=== PATIENT | male | born 1935 | race Caucasian/White ===

== ENCOUNTER 2017-12-01 14:55 | Inpatient (IN) | payer OTHER, BC ==
[2017-12-01] MEDS ORDERED: ACETAMINOPHEN 325 MG TAB PO PRN (16:59)
[2017-12-01] MEDS ORDERED: WARFARIN SODIUM 2.5 MG TAB PO SCH (17:00)
--- NOTE | 2017-12-01 18:01 | GHP ---
POST ADMISSION PHYSICIAN EVALUATION AND REHABILITATION TREATMENT PLAN DATE OF ADMISSION: 12/01/2017 DATE OF EVALUATION: 12/01/2017 TIME OF EVALUATION: 1635 REFERRING FACILITY: [facility] IMPAIRMENT GROUP: 1.9. DATE OF ONSET: 11/27/2017 REFERRING PHYSICIAN: Dr. Gunn CONSULTING PHYSICIANS: He was seen in consultation by tele-neurology Dr. Mera, and had an echocardiogram done by Cardiology. REHABLITATION DIAGNOSIS: Acute on chronic CVA. ETIOLOGIC DIAGNOSIS: Other stroke. HISTORY OF PRESENT ILLNESS: This patient is an 82-year-old man who was admitted to [facility] on 11/27/2017, after being found down at home with expressive aphasia. Hospital evaluation included an MR angiogram, which did not show any large vessel occlusions, an MRI of the brain which showed acute on chronic ischemic changes in the frontoparietal region on the left. He had an echocardiogram which showed no intracardiac shunt, but showed mild tricuspid regurgitation, mild valvular aortic stenosis, mild concentric left ventricular hypertrophy, ejection fraction of 50% to 55%, grade 2 diastolic dysfunction, normal right ventricular function, and normal atria. He was already on warfarin and on low-dose aspirin 81 mg a day. His INR was subtherapeutic at 1.76. He was continued on warfarin with dose adjustment per pharmacy. Aspirin dose was increased from 81 mg to 325 mg daily. He was started on atorvastatin. There was no specific indication mentioned in the hospital records for the warfarin. There were no dysrhythmias on cardiac monitoring. OTHER LABS AND STUDIES: During his stay, CBC was entirely within normal limits. Basic metabolic profile was consistent with mild dehydration and mild renal insufficiency with a BUN of 27, a creatinine of 1.2, and an estimated GFR of 56. Liver function tests were normal but for a very slightly low albumin at 3.2. Magnesium was normal at 2.2. PTT was slightly high at 38. Lactate was normal at 1.42. Troponin was negative. Urinalysis was normal. PRECAUTIONS: He is a fall risk. ACTIVE COMORBIDITIES: He has the tier 3 comorbidity of right upper extremity hemiparesis. He otherwise has no tier 1, tier 2, or tier 3 comorbidities. PAST MEDICAL HISTORY: 1. Cerebrovascular accident. 2. Hard of hearing. 3. Insomnia. 4. Open wound of the left forearm. 5. Cataract. PAST SURGICAL HISTORY: He has had back surgery in 2006. He had cataract removal in 2017, bilateral. He had a left carotid stent procedure in 2007 or 2008. He had bilateral total knee arthroplasties. PRE-HOSPITAL MEDICATIONS: 1. Acetaminophen 650 mg q.6 hours p.r.n. 2. Aspirin 81 mg p.o. daily. 3. Gabapentin 100 mg p.o. daily. 4. Trazodone 150 mg at bedtime. 5. Warfarin per [facility]. ADMISSION MEDICATIONS: 1. Acetaminophen 650 mg p.o. q.6 hours p.r.n. 2. Aspirin 325 mg p.o. daily. 3. Atorvastatin 40 mg p.o. daily. 4. Pantoprazole 40 mg p.o. daily. 5. Senna 17.2 mg p.o. daily. 6. Trazodone 150 mg p.o. at bedtime. 7. Warfarin 3 mg p.o. daily. ALLERGIES: There are no known drug allergies. PSYCHOSOCIAL HISTORY: He is and lives with his . 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 He has a remote history of smoking, but quit 17 years ago. He has approximately 2 drinks of alcohol a day. FAMILY HISTORY: Noncontributory. REVIEW OF SYSTEMS: Limited due to expressive aphasia. He denies pain, cough, dyspnea, nausea, vomiting, constipation or diarrhea, dysuria or urinary frequency, insomnia, and otherwise a 10-point review of systems is negative. PHYSICAL EXAM: VITAL SIGNS: Blood pressure is 138/92, heart rate is 65, respiratory rate is 18, oxygen saturation is 92% on room air, temperature is 36.6 degrees centigrade. His weight is 86.3 kg, for a body mass index of 25.1. GENERAL: This is a well-nourished, well-developed man, dressed in street clothes, lying down on a hospital bed, cooperative and in no acute distress. HEENT: Extraocular movements are intact. Pupils are equal, round, and reactive to light. Mucous membranes are moist. Dentition is in good condition. He has an uncrowded airway, Mallampati class 1. NECK: Supple. HEART: Regular rate and rhythm. There is a 2/6 systolic murmur at the right sternal border; prominent at the left sternal border. There is no JVD. LUNGS: Clear to auscultation bilaterally. ABDOMEN: Soft, nontender, nondistended with normoactive bowel sounds. EXTREMITIES: There is no cyanosis, clubbing, or edema. Radial and dorsalis pedis pulses are 2+ bilaterally. NEUROLOGIC: He is alert. Orientation was not checked due to his expressive aphasia. Cranial nerves 2-12 are grossly intact. He has increased resting tone in the right upper extremity, and holds the arm in a somewhat contracted position at the elbow and wrist. However, he is able to extend fully, and his motor strength on the right is 4/5 if not stronger. His movement on the right upper extremity is ataxic. Otherwise, motor strength is 5/5 overall in the left upper extremity and bilateral lower extremities. Sensation is intact to light touch. Deep tendon reflexes are 2+ bilaterally at the biceps, patellar, and Achilles tendons. Plantar reflex is downgoing on the left and upgoing on the right. He has expressive aphasia, but he is able to follow directions and occasionally answer verbally and with intelligible speech, for instance, indicating that he is a cdl team truck driver. CURRENT LEVEL OF FUNCTION: Per the preadmission screen, regarding diet, feeding and swallowing, he was on a regular diet. He was upright for oral intake with small bites and to remain upright for 20-30 minutes after meals. He was on thin liquids. Toileting required total assist to use a urinal. He was incontinent of bladder. Bed mobility required standby assist for sit to supine. Transfers required contact guard assist of 2 for sit to stand to a front-wheeled walker. He used either a right platform front-wheeled walker or a standard front-wheeled walker. Seated balance required standby to contact guard assist. He required minimal assistance to stand with a front-wheeled walker. His endurance was fair. He was able to ambulate 15 feet x1 and 40 feet x1 with assistance varying from contact guard to minimal assist of 2. He required supervision to use a platform walker. Regarding communication, he was noted to have [id number] expressive aphasia and mild receptive aphasia. He had mild dysarthria. On today's exam, there is no significant change from the preadmission screen. 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 There, evaluation showed acute on chronic left-sided strokes. There was no large vessel occlusion. Echocardiogram ruled out intracardiac shunting. He was subtherapeutic on warfarin. There was no clear indication for the warfarin, though he may have had prior recurrent strokes and been stepped up to warfarin. There were no dysrhythmias seen on monitoring at the hospital. Aspirin was increased from 81 mg to 325 mg daily, and he was begun on atorvastatin 40 mg daily. He did not have elevated blood pressures. He was otherwise medically stabilized, participating in therapy, and appropriate for inpatient rehabilitation. His goal is to complete a rehabilitation stay and then return home with his family and supportive services. For a safe discharge, he will need to achieve independence with eating, grooming, dressing and bed mobility. He will need to achieve modified independence for transfers, toileting, and ambulation with the least restrictive device. He may continue to require assistance for bathing. He will need to be able to follow multistep commands and make his needs known using compensatory strategies. He will have therapy with physical therapy, occupational therapy, speech and language pathology for 60 minutes per day for each discipline on 5-7 days of the week. His expected duration of stay is 7-10 days. It is anticipated that upon discharge, he will continue to benefit from home health services, including nursing, CHECKER STOCKER, OT, and PT. He will also likely benefit from a stroke support group. PLAN: 1. Acute on chronic cerebrovascular accident with new expressive aphasia and impaired mobility and ADLs. PT and OT to optimize mobility and ADLs toward a modified independent level. Speech and Language Pathology assessment regarding communication. 2. Secondary prophylaxis of cerebrovascular accident. Continue atorvastatin and increased dose aspirin. Continue warfarin. Will investigate further in conversation with his regarding the indication for warfarin. Pharmacy will manage his warfarin dosing. 3. 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 Also has increased tone. Will consider the possibility of initiating baclofen if upper extremity increased tone interferes with progress regarding functional status. 4. History of insomnia. Continue trazodone, which has been ordered at 150 mg at bedtime. 5. Prophylaxis. Continue warfarin, which will be sufficient for deep venous thrombosis prophylaxis, assuming his INR is therapeutic. Will check INR in the morning. Given that he is on warfarin as well as aspirin, will continue pantoprazole as ordered out of the hospital at 40 mg p.o. daily. He was not taking this prior to his hospitalization, but his aspirin dose has been increased from 81 to 325 mg daily, so it seems prudent to continue the pantoprazole for GI prophylaxis. FOLLOWUP: He will follow up with his primary care provider, Dr. Arvind Kaur at [facility] in 2-3 weeks, and he will follow up with the [facility] at [place]. He has an appointment set for Wednesday, December 08 at 10:15 a.m. If he is not discharged by this date, appointment will be rescheduled. /[id number]/MODL MTDD
[2017-12-01] MEDS ORDERED: traZODone 100 MG TAB PO SCH (21:00)
[2017-12-01] MEDS ORDERED: traZODone 100 MG TAB PO PRN (21:41)
[2017-12-02] MEDS: ASPIRIN 325 MG TAB PO SCH (08:26)
[2017-12-02] MEDS: ATORVASTATIN CALCIUM 40 MG TAB PO SCH (08:26)
[2017-12-02 08:27] LABS: INR 2.02 (0.83-1.16); PROTIME(PATIENT) 22.9 SEC (12.0-15.0)
[2017-12-02] MEDS: PANTOPRAZOLE SODIUM 40 MG TAB PO SCH (08:27)
[2017-12-02] MEDS: SENNOSIDES 1 TAB PO SCH (08:27)
--- NOTE | 2017-12-02 11:08 | SOAPPROG ---
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 PT and OT to optimize mobility and ADLs toward a modified independent level. Speech and Language Pathology assessment regarding communication. Secondary prophylaxis of cerebrovascular accident. Continue atorvastatin and increased dose aspirin. Continue warfarin. Per , warfarin was started after multiple strokes. She reports he has had 4 strokes. Pharmacy will manage his warfarin dosing. 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 Also has increased tone. Will consider the possibility of initiating baclofen if upper extremity increased tone interferes with progress regarding functional status. History of insomnia. Continue trazodone, 150 mg at bedtime. Irregular heartbeat. Check EKG. Constipation. Continue senna. Add polyethylene glycol 17 g p.o. Q.day. Aortic stenosis. No signs or symptoms of congestive heart failure. Prophylaxis. Continue warfarin, which will be sufficient for deep venous thrombosis prophylaxis, assuming his INR is therapeutic. Will check INR in the morning. Given that he is on warfarin as well as aspirin, will continue pantoprazole as ordered out of the hospital at 40 mg p.o. daily. He was not taking this prior to his hospitalization, but his aspirin dose has been increased from 81 to 325 mg daily, so it seems prudent to continue the pantoprazole for GI prophylaxis. FOLLOWUP: He will follow up with his primary care provider, Dr. Arvind Kaur at [facility] in 2-3 weeks, and he will follow up with the [facility] at [place]. He has an appointment set for December 08 at 10:15 a.m. If he is not discharged by this date, appointment will be rescheduled. 12/02/17 11:48 Subjective: Reports poor sleep last night. Says he was up 3 times to urinate which is his usual habit; achieved sleep readily after each urination. Denies pain cough dyspnea fevers or chills. Trazodone was not given until 2339. Objective: Vital Signs Temp Pulse Resp BP Pulse Ox 36.9 C 67 16 125/66 H 95 12/02/17 06:38 12/02/17 06:38 12/02/17 06:38 12/02/17 06:38 12/02/17 06:38 12/01/17 12/02/17 12/03/17 05:59 05:59 05:59 Intake Total 650 700 Output Total 550 400 Balance 100 300 PT 22.9 SEC (12.0-15.0) H 12/02/17 06:30 INR 2.02 (0.83-1.16) H 12/02/17 06:30 Physical Exam - Physical Exam General Appearance: WD/WN, alert, no apparent distress Respiratory: normal breath sounds, No crackles, No rhonchi, No wheezing Cardiac/Chest: JVD, systolic murmur, irregularly irregular, No edema Skin: normal color, warm/dry, other (Dry skin) Neuro/Psych: alert, normal mood/affect, aphasia (Expressive), motor weakness ( Right upper extremity) ICD10 Worksheet Patient Problems: Problems Problem Status Onset CVA (cerebral vascular accident) Acute
--- NOTE | 2017-12-02 11:52 | PDOREHIP ---
Admission [facility] - Admission - 3 Day Assessment Period Admission Date/Day 1: 12/01/17 Day 2: 12/02/17 Day 3: 12/03/17 - Active Diagnoses Comorbidities and Co-existing Conditions at Admission: 57825. None of the Above - Skin Conditions Unhealed Pressure Ulcer (1 or more/Stage 1 or >)-Admission: 0. No
--- NOTE | 2017-12-02 15:21 | CPEKG ---
Test Reason : OPEN Blood Pressure : / mmHG Vent. Rate : 068 BPM Atrial Rate : 068 BPM P-R Int : 200 ms QRS Dur : 108 ms QT Int : 428 ms P-R-T Axes : 010 -61 021 degrees QTc Int : 456 ms SINUS RHYTHM INCOMPLETE LEFT BUNDLE BRANCH BLOCK Confirmed by Cristian Bermudez ([id number]) on 12/02/2017 3:21:12 PM Referred By: Confirmed By:Cristian Bermudez
[2017-12-02] MEDS: WARFARIN SODIUM 3 MG TAB PO SCH (15:53)
[2017-12-02] MEDS: AQUAPHOR OINTMENT 3.5 OZ JAR TP SCH ×2 (15:54→19:52)
[2017-12-02] MEDS: traZODone 100 MG TAB PO SCH (19:49)
[2017-12-03 08:14] LABS: INR 1.93 (0.83-1.16); PROTIME(PATIENT) 22.1 SEC (12.0-15.0)
[2017-12-03] MEDS ORDERED: PNEUMOC 13-VAL CONJ-DIP CRM/PF 0.5 ML SYR IM ONE (08:14)
[2017-12-03] MEDS: POLYETHYLENE GLYCOL 3350 17 GM PKT PO SCH (08:32)
[2017-12-03] MEDS: PANTOPRAZOLE SODIUM 40 MG TAB PO SCH (08:33)
[2017-12-03] MEDS: ATORVASTATIN CALCIUM 40 MG TAB PO SCH (08:33)
[2017-12-03] MEDS: SENNOSIDES 1 TAB PO SCH (08:34)
[2017-12-03] MEDS: AQUAPHOR OINTMENT 3.5 OZ JAR TP SCH ×2 (08:43→20:28)
[2017-12-03] MEDS: ASPIRIN 325 MG TAB PO SCH (08:45)
[2017-12-03] MEDS: WARFARIN SODIUM 3 MG TAB PO SCH (15:48)
--- NOTE | 2017-12-03 16:51 | SOAPPROG ---
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 * Has walked 45 ft x 2. Minimal to moderate assist for ADLs. * Continue PT and OT to optimize mobility and ADLs toward a modified independent level. Speech and Language Pathology assessment regarding communication. Expressive aphasia. Starting to show improvement. 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 Secondary prophylaxis of cerebrovascular accident. Continue atorvastatin and increased dose aspirin. Continue warfarin. Per , warfarin was started after multiple strokes. She reports he has had 4 strokes. Pharmacy will manage his warfarin dosing. 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 Also has increased tone. Will consider the possibility of initiating baclofen if upper extremity increased tone interferes with progress regarding functional status. History of insomnia. Continue trazodone, 150 mg at bedtime. Irregular heartbeat. EKG shows sinus rhythm, incomplete left bundle branch block.. Constipation. Continue senna. Add polyethylene glycol 17 g p.o. Q.day. Aortic stenosis. No signs or symptoms of congestive heart failure. Prophylaxis. Continue warfarin, which will be sufficient for deep venous thrombosis prophylaxis, assuming his INR is therapeutic. Will check INR in the morning. Given that he is on warfarin as well as aspirin, will continue pantoprazole as ordered out of the hospital at 40 mg p.o. daily. He was not taking this prior to his hospitalization, but his aspirin dose has been increased from 81 to 325 mg daily, so it seems prudent to continue the pantoprazole for GI prophylaxis. FOLLOWUP: He will follow up with his primary care provider, Dr. Arvind Kaur at [facility] in 2-3 weeks, and he will follow up with the [facility] at [place]. He has an appointment set for Wednesday, December 08 at 10:15 a.m. If he is not discharged by this date, appointment will be rescheduled. 12/03/17 16:46 Subjective: No complaints. Sleeping well. Not in pain. No cough or dyspnea, no fevers or chills per Objective: Vital Signs Temp Pulse Resp BP Pulse Ox 36.9 C 62 16 134/81 H 91 L 12/03/17 06:13 12/03/17 06:13 12/03/17 06:13 12/03/17 06:13 12/03/17 06:13 12/02/17 12/03/17 12/04/17 05:59 05:59 05:59 Intake Total 650 1900 660 Output Total 550 1210 200 Balance 100 690 460 PT 22.1 SEC (12.0-15.0) H 12/03/17 06:00 INR 1.93 (0.83-1.16) H 12/03/17 06:00 Physical Exam - Physical Exam General Appearance: WD/WN, alert, no apparent distress Respiratory: No respiratory distress, No accessory muscle use Skin: normal color, warm/dry Neuro/Psych: alert, normal mood/affect, aphasia (Expressive), motor weakness ( Right upper extremity ataxia) ICD10 Worksheet Patient Problems: Problems Problem Status Onset CVA (cerebral vascular accident) Acute
[2017-12-03] MEDS: traZODone 100 MG TAB PO SCH (20:28)
[2017-12-04 07:35] LABS: INR 1.65 (0.83-1.16); PROTIME(PATIENT) 19.6 SEC (12.0-15.0)
[2017-12-04] MEDS: POLYETHYLENE GLYCOL 3350 17 GM PKT PO SCH (08:44)
[2017-12-04] MEDS: SENNOSIDES 1 TAB PO SCH (08:44)
[2017-12-04] MEDS: PANTOPRAZOLE SODIUM 40 MG TAB PO SCH (08:45)
[2017-12-04] MEDS: ASPIRIN 325 MG TAB PO SCH (08:45)
[2017-12-04] MEDS: ATORVASTATIN CALCIUM 40 MG TAB PO SCH (08:45)
[2017-12-04] MEDS: AQUAPHOR OINTMENT 3.5 OZ JAR TP SCH ×2 (11:19→20:49)
--- NOTE | 2017-12-04 15:00 | SOAPPROG ---
SOAP Progress Note Assessment/Plan: Assessment/Plan: Acute on chronic cerebrovascular accident with new expressive aphasia and impaired mobility and ADLs. * Has walked 45 ft x 2. Minimal to moderate assist for ADLs. * Continue PT and OT to optimize mobility and ADLs toward a modified independent level. Speech and Language Pathology assessment regarding communication. Expressive aphasia. Starting to show improvement. 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 Secondary prophylaxis of cerebrovascular accident. Continue atorvastatin and increased dose aspirin. Continue warfarin. Per , warfarin was started after multiple strokes. She reports he has had 4 strokes. Pharmacy will manage his warfarin dosing. * Per discussion with physician from [facility] - Unclear when AC was started. At least has been on it since 2017. Ongoing f/u with his PCP Dr. Kaur. Pt did have Left Common carotid artery stent placed after 2nd stroke? 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 Also has increased tone. Will consider the possibility of initiating baclofen if upper extremity increased tone interferes with progress regarding functional status. History of insomnia. Continue trazodone, 150 mg at bedtime. Irregular heartbeat. EKG shows sinus rhythm, incomplete left bundle branch block.. Constipation. Continue senna. Add polyethylene glycol 17 g p.o. Q.day. Aortic stenosis. No signs or symptoms of congestive heart failure. Prophylaxis. Continue warfarin, which will be sufficient for deep venous thrombosis prophylaxis, assuming his INR is therapeutic. Will check INR in the morning. Given that he is on warfarin as well as aspirin, will continue pantoprazole as ordered out of the hospital at 40 mg p.o. daily. He was not taking this prior to his hospitalization, but his aspirin dose has been increased from 81 to 325 mg daily, so it seems prudent to continue the pantoprazole for GI prophylaxis. FOLLOWUP: He will follow up with his primary care provider, Dr. Arvind Kaur at [facility] in 2-3 weeks, and he will follow up with the [facility] at [place]. He has an appointment set for Wednesday, December 08 at 10:15 a.m. If he is not discharged by this date, appointment will be rescheduled. 12/04/17 14:56 Subjective: feeling a little tired today. NO new neurologic complaints. May help to have time voids to assure continence. Called pharmacy today for strategy on management of coumadin. Objective: Vital Signs Temp Pulse Resp BP Pulse Ox 97.5 F 67 16 134/84 H 93 12/04/17 06:33 12/04/17 06:33 12/04/17 06:33 12/04/17 06:33 12/04/17 06:33 12/03/17 12/04/17 12/05/17 05:59 05:59 05:59 Intake Total 1900 1020 1040 Output Total 1210 400 350 Balance 690 620 690 PT 19.6 SEC (12.0-15.0) H 12/04/17 06:05 INR 1.65 (0.83-1.16) H 12/04/17 06:05 Physical Exam - Physical Exam General Appearance: alert, no apparent distress Respiratory: lungs clear, normal breath sounds Cardiac/Chest: regular rate, rhythm Abdomen: non-tender, soft Skin: normal color Neuro/Psych: alert ICD10 Worksheet Patient Problems: Problems Problem Status Onset CVA (cerebral vascular accident) Acute
[2017-12-04] MEDS: WARFARIN SODIUM 3 MG TAB PO SCH (15:25)
[2017-12-04] MEDS ORDERED: WARFARIN SODIUM 1 MG TAB PO ONE (16:00)
[2017-12-04] MEDS: traZODone 100 MG TAB PO SCH (20:47)
[2017-12-05 07:43] LABS: PLATELET COUNT 215 10^3/uL (150-400)
[2017-12-05 07:50] LABS: INR 1.48 (0.83-1.16); PROTIME(PATIENT) 18.1 SEC (12.0-15.0)
[2017-12-05] MEDS: PANTOPRAZOLE SODIUM 40 MG TAB PO SCH (08:31)
[2017-12-05] MEDS: ATORVASTATIN CALCIUM 40 MG TAB PO SCH (08:31)
[2017-12-05] MEDS: POLYETHYLENE GLYCOL 3350 17 GM PKT PO SCH (08:31)
[2017-12-05] MEDS: SENNOSIDES 1 TAB PO SCH (08:31)
[2017-12-05] MEDS: ASPIRIN 325 MG TAB PO SCH (08:31)
--- NOTE | 2017-12-05 12:35 | SOAPPROG ---
SOAP Progress Note Assessment/Plan: Assessment/Plan: Acute on chronic cerebrovascular accident with new expressive aphasia and impaired mobility and ADLs. * Has walked 45 ft x 2. Minimal to moderate assist for ADLs. * Continue PT and OT to optimize mobility and ADLs toward a modified independent level. Speech and Language Pathology assessment regarding communication. Expressive aphasia. Starting to show improvement. 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 Secondary prophylaxis of cerebrovascular accident. Continue atorvastatin and increased dose aspirin. Continue warfarin. Per , warfarin was started after multiple strokes. She reports he has had 4 strokes. Pharmacy will manage his warfarin dosing. * Per discussion with physician from [facility] - Unclear when AC was started. At least has been on it since 2017. Ongoing f/u with his PCP Dr. Kaur. Pt did have Left Common carotid artery stent placed after 2nd stroke? 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 Also has increased tone. Will consider the possibility of initiating baclofen if upper extremity increased tone interferes with progress regarding functional status. History of insomnia. Continue trazodone, 150 mg at bedtime. Irregular heartbeat? EKG shows sinus rhythm, incomplete left bundle branch block.. Constipation. Continue senna. Add polyethylene glycol 17 g p.o. Q.day. Aortic stenosis. No signs or symptoms of congestive heart failure. Prophylaxis. Continue warfarin, which will be sufficient for deep venous thrombosis prophylaxis, assuming his INR is therapeutic. Will check INR in the morning. Given that he is on warfarin as well as aspirin, will continue pantoprazole as ordered out of the hospital at 40 mg p.o. daily. He was not taking this prior to his hospitalization, but his aspirin dose has been increased from 81 to 325 mg daily, so it seems prudent to continue the pantoprazole for GI prophylaxis. FOLLOWUP: He will follow up with his primary care provider, Dr. Arvind Kaur at [facility] in 2-3 weeks, and he will follow up with the [facility] at [place]. He has an appointment set for Wednesday, December 08 at 10:15 a.m. If he is not discharged by this date, appointment will be rescheduled. Today's Plan: Good discussion with /patient about his "CVA" history. Per - he has been on the coumadin since 2005 although she doesn't remember a diagnosis of Afib/flutter or other cardiac diagnosis. He was taking both coumadin and Plavix for a time(after his stent was placed) although more recently has been on ASA and coumadin. She reports that at one time (it seems between the 2nd/3rd stroke) he stopped taking his coumadin and they weren't sure if that's what lead to his 3rd stroke.. Although now had this 4th stroke while on ASA/Coumadin so now they are not sure. His INR levels are dropping since he arrived here with us. may need to consider a 1 time dose of Lovenox - now that have BMP back. Will talk with pharmacy about their plan for ongoing management. 12/05/17 12:32 Subjective: Feeling good today - Still with some in continence of bladder but this is getting better. Seemed to be somewhat related to functional mobility rather than to not "knowing" when he needed to darlene the restroom. no CP/SOB. No abdominal pain Objective: Vital Signs Temp Pulse Resp BP Pulse Ox 98.5 F 76 17 126/75 H 91 L 12/05/17 06:23 12/05/17 06:23 12/05/17 06:23 12/05/17 06:23 12/05/17 06:23 Laboratory Results 12/05/17 05:50 12/05/17 05:50 12/04/17 12/05/17 12/06/17 05:59 05:59 05:59 Intake Total 1020 1458 420 Output Total 400 600 Balance 620 858 420 PT 18.1 SEC (12.0-15.0) H 12/05/17 05:50 INR 1.48 (0.83-1.16) H 12/05/17 05:50 Physical Exam - Physical Exam General Appearance: alert, no apparent distress, other (sitting up in the chair) Respiratory: lungs clear, normal breath sounds Cardiac/Chest: regular rate, rhythm Abdomen: non-tender, soft Skin: normal color Neuro/Psych: alert, normal mood/affect, aphasia ICD10 Worksheet Patient Problems: Problems Problem Status Onset CVA (cerebral vascular accident) Acute
[2017-12-05] MEDS: AQUAPHOR OINTMENT 3.5 OZ JAR TP SCH ×2 (12:53→21:10)
[2017-12-05] MEDS: ENOXAPARIN 40 MG/0.4 ML SYR SC SCH (14:37)
[2017-12-05] MEDS ORDERED: WARFARIN SODIUM 3 MG TAB PO ONE (16:00)
[2017-12-05] MEDS: traZODone 100 MG TAB PO SCH (21:09)
[2017-12-06 08:25] LABS: INR 1.5 (0.83-1.16); PROTIME(PATIENT) 18.3 SEC (12.0-15.0)
[2017-12-06] MEDS: ATORVASTATIN CALCIUM 40 MG TAB PO SCH (09:02)
[2017-12-06] MEDS: ASPIRIN 325 MG TAB PO SCH (09:02)
[2017-12-06] MEDS: POLYETHYLENE GLYCOL 3350 17 GM PKT PO SCH (09:02)
[2017-12-06] MEDS: ENOXAPARIN 40 MG/0.4 ML SYR SC SCH (09:03)
[2017-12-06] MEDS: PANTOPRAZOLE SODIUM 40 MG TAB PO SCH (09:03)
[2017-12-06] MEDS: SENNOSIDES 1 TAB PO SCH (09:03)
[2017-12-06] MEDS: AQUAPHOR OINTMENT 3.5 OZ JAR TP SCH ×2 (09:03→20:07)
--- NOTE | 2017-12-06 13:55 | SOAPPROG ---
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 * Initial functional independence measure is 50 on 12/06/2017. Bed mobility requires contact guard to minimal assist. Transfers require contact guard to minimal assist. He is retro pulse of. He has decreased hip and knee extension. He ambulated 100 ft with a front wheeled walker and contact guard to minimal assist. He is noted to have shuffling steps. Grooming and hygiene are done seated he needs moderate assist for shaving. Upper body dressing requires standby to minimal assist. Lower body dressing requires contact guard assist to hike his pants and moderate assist for socks and shoes. Bath transfer and toilet transfer require contact guard to minimal assist. * Continue PT and OT to optimize mobility and ADLs toward a modified independent level. Speech and Language Pathology assessment regarding communication. Expressive aphasia. Starting to show improvement. 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 Secondary prophylaxis of cerebrovascular accident. Continue atorvastatin and increased dose aspirin. Continue warfarin. Per , warfarin was started after multiple strokes. She reports he has had 4 strokes. Pharmacy will manage his warfarin dosing. 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 Also has increased tone. Will consider the possibility of initiating baclofen if upper extremity increased tone interferes with progress regarding functional status. Nocturia. Noted to be incontinent of urine in the drop man hours. * Possible BPH. Check postvoid residual by bladder scan. Consider initiation of tamsulosin. History of insomnia. Continue trazodone, 150 mg at bedtime. Irritability. Use of serotonergic agents is limited by concurrent trazodone. May improve with better sleep. Await assessment of postvoid residual. Irregular heartbeat. EKG shows sinus rhythm, incomplete left bundle branch block.. Constipation. Continue senna. Add polyethylene glycol 17 g p.o. Q.day. Continent of bowel. Aortic stenosis. No signs or symptoms of congestive heart failure. Prophylaxis. Continue warfarin, which will be sufficient for deep venous thrombosis prophylaxis, assuming his INR is therapeutic. Will check INR in the morning. Given that he is on warfarin as well as aspirin, will continue pantoprazole as ordered out of the hospital at 40 mg p.o. daily. He was not taking this prior to his hospitalization, but his aspirin dose has been increased from 81 to 325 mg daily, so it seems prudent to continue the pantoprazole for GI prophylaxis. DISPOSITION: Lives with , 2 steps to enter. 55-year-old daughter lives with them and and daughter are both available to help. Set tentative discharge date for 12/17/2017. FOLLOWUP: He will follow up with his primary care provider, Dr. Arvind Kaur at [facility] in 2-3 weeks, and he will follow up with the [facility] at [place]. He has an appointment set for December 08 at 10:15 a.m. If he is not discharged by this date, appointment will be rescheduled. 12/06/17 13:47 Subjective: No complaints initially. No cough or dyspnea, no fevers or chills. Reports difficulty falling asleep and is awakened to urinate several times. Reports that he achieve sleep readily after he is awake at night. Nursing has noticed episodes of irritability and frustration. Objective: Vital Signs Temp Pulse Resp BP Pulse Ox 36.3 C 73 16 114/82 H 97 12/06/17 08:00 12/06/17 08:00 12/06/17 08:00 12/06/17 08:00 12/06/17 08:00 Laboratory Results 12/05/17 05:50 12/05/17 05:50 12/05/17 12/06/17 12/07/17 05:59 05:59 05:59 Intake Total 1458 1320 340 Output Total 600 Balance 858 1320 340 PT 18.3 SEC (12.0-15.0) H 12/06/17 06:00 INR 1.50 (0.83-1.16) H 12/06/17 06:00 - Time Spent With Patient Time Spent With Patient: Greater than 35 min floor time today, including more than 50% of time in coordination of care during staffing, and counseling patient. Physical Exam - Physical Exam General Appearance: WD/WN, alert, no apparent distress Respiratory: normal breath sounds, crackles (Bibasilar inspiratory), No rhonchi , No wheezing Cardiac/Chest: regular rate, rhythm, No edema, No JVD, No diastolic murmur, No systolic murmur Skin: normal color, warm/dry Neuro/Psych: alert, normal mood/affect, aphasia (Expressive greater than receptive), other (Ataxia and spasticity right upper extremity) ICD10 Worksheet Patient Problems: Problems Problem Status Onset CVA (cerebral vascular accident) Acute
[2017-12-06] MEDS ORDERED: WARFARIN SODIUM 7.5 MG TAB PO ONE (16:00)
[2017-12-06] MEDS: traZODone 100 MG TAB PO SCH (20:04)
[2017-12-07 08:05] LABS: INR 1.77 (0.83-1.16); PROTIME(PATIENT) 20.7 SEC (12.0-15.0)
[2017-12-07] MEDS: POLYETHYLENE GLYCOL 3350 17 GM PKT PO SCH (08:29)
[2017-12-07] MEDS: ATORVASTATIN CALCIUM 40 MG TAB PO SCH (08:30)
[2017-12-07] MEDS: SENNOSIDES 1 TAB PO SCH (08:32)
[2017-12-07] MEDS: ASPIRIN 325 MG TAB PO SCH (08:32)
[2017-12-07] MEDS: PANTOPRAZOLE SODIUM 40 MG TAB PO SCH (08:34)
--- NOTE | 2017-12-07 10:09 | SOAPPROG ---
SOAP Progress Note Assessment/Plan: 82-year-old male with a acute on chronic stroke in the frontoparietal region on the left side on 11/27/2017 with new expressive aphasia and impairments in mobility and ADLs. Today's update: Patient feels like therapies are going well. Reports to be neurologically improving. Continue stroke prophylaxis, anticoagulation with warfarin, also continue aspirin. Appreciate assistance from pharmacy for warfarin dosing. a total of 25 min was spent on the floor in the care of the patient, the majority of which was spent in counseling coordination of care regarding rehab progress. Additional issues reviewed without change today include nocturia, insomnia, irritability, irregular heartbeat, constipation, aortic stenosis. 12/07/17 10:05 Subjective: Chief complaint: Rehab progress No acute events overnight. Patient denies any new shortness of breath or chest pain, no new numbness, tingling, or weakness. Feels that therapy is going well, no new concerns. Objective: Vital Signs Temp Pulse Resp BP Pulse Ox 36.9 C 77 16 150/101 H 92 12/07/17 06:48 12/07/17 06:48 12/07/17 06:48 12/07/17 06:48 12/07/17 06:48 Laboratory Results 12/05/17 05:50 12/05/17 05:50 12/06/17 12/07/17 12/08/17 05:59 05:59 05:59 Intake Total 1320 460 300 Output Total 200 Balance 1320 260 300 PT 20.7 SEC (12.0-15.0) H 12/07/17 06:00 INR 1.77 (0.83-1.16) H 12/07/17 06:00 Physical Exam - Physical Exam General Appearance: WD/WN, alert, no apparent distress EENT: No scleral icterus (R), No scleral icterus (L) Respiratory: No respiratory distress, No accessory muscle use Cardiac/Chest: normal peripheral pulses, regular rate, rhythm, No edema Skin: normal color, warm/dry, No cyanosis, No diaphoresis Extremities: non-tender, No pedal edema, No swelling Neuro/Psych: alert, normal mood/affect, speech abnormalities ICD10 Worksheet Patient Problems: Problems Problem Status Onset CVA (cerebral vascular accident) Acute
[2017-12-07] MEDS: ENOXAPARIN 40 MG/0.4 ML SYR SC SCH (10:30)
[2017-12-07] MEDS: AQUAPHOR OINTMENT 3.5 OZ JAR TP SCH ×2 (10:31→20:04)
[2017-12-07] MEDS ORDERED: WARFARIN SODIUM 7.5 MG TAB PO ONE (16:00)
[2017-12-07] MEDS: traZODone 100 MG TAB PO SCH (20:04)
[2017-12-08 08:12] LABS: PLATELET COUNT 212 10^3/uL (150-400)
[2017-12-08] MEDS: SENNOSIDES 1 TAB PO SCH (08:24)
[2017-12-08] MEDS: ATORVASTATIN CALCIUM 40 MG TAB PO SCH (08:25)
[2017-12-08] MEDS: ASPIRIN 325 MG TAB PO SCH (08:25)
[2017-12-08] MEDS: PANTOPRAZOLE SODIUM 40 MG TAB PO SCH (08:25)
[2017-12-08] MEDS: POLYETHYLENE GLYCOL 3350 17 GM PKT PO SCH (08:26)
[2017-12-08] MEDS: ENOXAPARIN 40 MG/0.4 ML SYR SC SCH (09:01)
[2017-12-08] MEDS: AQUAPHOR OINTMENT 3.5 OZ JAR TP SCH ×2 (09:03→20:22)
[2017-12-08 14:59] LABS: INR 2.6 (0.8-1.2); PROTIME(PATIENT) 31.2 SEC (12-15)
[2017-12-08] MEDS ORDERED: WARFARIN SODIUM 2 MG TAB PO ONE (16:00)
[2017-12-08] MEDS ORDERED: WARFARIN SODIUM 5 MG TAB PO ONE (16:00)
--- NOTE | 2017-12-08 17:19 | SOAPPROG ---
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 * Initial functional independence measure is 50 on 12/06/2017. Bed mobility requires contact guard to minimal assist. Transfers require contact guard to minimal assist. He is retro pulse of. He has decreased hip and knee extension. He ambulated 100 ft with a front wheeled walker and contact guard to minimal assist. He is noted to have shuffling steps. Grooming and hygiene are done seated he needs moderate assist for shaving. Upper body dressing requires standby to minimal assist. Lower body dressing requires contact guard assist to hike his pants and moderate assist for socks and shoes. Bath transfer and toilet transfer require contact guard to minimal assist. * Continue PT and OT to optimize mobility and ADLs toward a modified independent level. Speech and Language Pathology assessment regarding communication. Expressive aphasia. Starting to show improvement. 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 Secondary prophylaxis of cerebrovascular accident. Continue atorvastatin and increased dose aspirin. Continue warfarin. Per , warfarin was started after multiple strokes. She reports he has had 4 strokes. Pharmacy will manage his warfarin dosing. 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 Also has increased tone. Will consider the possibility of initiating baclofen if upper extremity increased tone interferes with progress regarding functional status. Nocturia. 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 * Possible BPH. Check postvoid residual by bladder scan. Consider initiation of tamsulosin. History of insomnia. Continue trazodone, 150 mg at bedtime. Irritability. Use of serotonergic agents is limited by concurrent trazodone. May improve with better sleep. Await assessment of postvoid residual. Irregular heartbeat. EKG shows sinus rhythm, incomplete left bundle branch block.. Constipation. Continue senna. Add polyethylene glycol 17 g p.o. Q.day. Continent of bowel. Aortic stenosis. No signs or symptoms of congestive heart failure. Prophylaxis. Continue warfarin, which will be sufficient for deep venous thrombosis prophylaxis, assuming his INR is therapeutic. Will check INR in the morning. Given that he is on warfarin as well as aspirin, will continue pantoprazole as ordered out of the hospital at 40 mg p.o. daily. He was not taking this prior to his hospitalization, but his aspirin dose has been increased from 81 to 325 mg daily, so it seems prudent to continue the pantoprazole for GI prophylaxis. DISPOSITION: Lives with , 2 steps to enter. 55-year-old daughter lives with them and and daughter are both available to help. Set tentative discharge date for 12/17/2017. FOLLOWUP: He will follow up with his primary care provider, Dr. Arvind Kaur at [facility] in 2-3 weeks, and he will follow up with the [facility] at [place]. He has an appointment set for December 08 at 10:15 a.m. If he is not discharged by this date, appointment will be rescheduled. 12/06/17 13:47 Subjective: No complaints. Working with Occupational therapy on mobility of right upper extremity and on retraction of shoulder blades. Sleeping well. Not in pain. Objective: Vital Signs Temp Pulse Resp BP Pulse Ox 36.6 C 68 16 152/98 H 94 12/08/17 07:15 12/08/17 07:15 12/08/17 07:15 12/08/17 07:15 12/08/17 07:15 Laboratory Results 12/08/17 06:20 12/05/17 05:50 12/07/17 12/08/17 12/09/17 05:59 05:59 05:59 Intake Total 460 1916 1130 Output Total 200 Balance 260 1916 1130 PT 31.2 SEC (12-15) H 12/08/17 14:58 INR 2.6 (0.8-1.2) H 12/08/17 14:58 Physical Exam - Physical Exam General Appearance: WD/WN, alert, no apparent distress Respiratory: No respiratory distress, No accessory muscle use Skin: normal color, warm/dry Neuro/Psych: alert, normal mood/affect, oriented x 3, aphasia, motor weakness ( Right upper extremity ataxia) ICD10 Worksheet Patient Problems: Problems Problem Status Onset CVA (cerebral vascular accident) Acute
[2017-12-08] MEDS: traZODone 100 MG TAB PO SCH (20:22)
[2017-12-09] MEDS: SENNOSIDES 1 TAB PO SCH (08:06)
[2017-12-09] MEDS: ENOXAPARIN 40 MG/0.4 ML SYR SC SCH (08:06)
[2017-12-09] MEDS: PANTOPRAZOLE SODIUM 40 MG TAB PO SCH (08:07)
[2017-12-09] MEDS: ATORVASTATIN CALCIUM 40 MG TAB PO SCH (08:07)
[2017-12-09] MEDS: POLYETHYLENE GLYCOL 3350 17 GM PKT PO SCH (08:07)
[2017-12-09] MEDS: ASPIRIN 325 MG TAB PO SCH (08:07)
[2017-12-09 08:30] LABS: INR 2.05 (0.83-1.16); PROTIME(PATIENT) 23.2 SEC (12.0-15.0)
--- NOTE | 2017-12-09 09:51 | SOAPPROG ---
ALISON Progress Note Assessment/Plan: 82-year-old male with a acute on chronic stroke in the frontoparietal region on the left side on 11/27/2017 with new expressive aphasia and impairments in mobility and ADLs. Today's update: Therapies reportedly going well. INR today is 2.05 down from 2.6 yesterday, appreciate help from pharmacy for dosing. Patient has not had any bleeding. Patient has also been a bit hypertensive, higher today than prior days at 160/90. He has not previously been on antihypertensives and rhythm starting amlodipine 2.5 mg daily starting today. Denies any history of orthostasis, but we should watch this closely. A total of 25 min was spent on the floor in the care of the patient, the majority of which was spent in counseling coordination of care regarding appropriate selection of anti hypertensive, counseling patient on hypertension. Additional issues reviewed without change today include nocturia, insomnia, irritability, irregular heartbeat, constipation, aortic stenosis. 12/07/17 10:05 12/09/17 09:48 Subjective: Chief complaint: Hypertension No acute events overnight. Patient denies any new shortness of breath or chest pain, no new numbness, tingling, or weakness. No vision changes, no headache. Notified by nursing that blood pressure systolics were in the 160s today. Patient has not had a previous diagnosis of hypertension that he is aware of, no previous antihypertensives. He denies any lightheadedness or orthostasis when standing and states this has never been a problem. No allergies to any medications. Otherwise he says therapy is going well, no acute concerns today. Objective: Vital Signs Temp Pulse Resp BP Pulse Ox 36.4 C 59 L 14 161/90 H 94 12/09/17 07:09 12/09/17 07:36 12/09/17 07:36 12/09/17 07:36 12/09/17 07:36 Laboratory Results 12/08/17 06:20 12/05/17 05:50 12/08/17 12/09/17 12/10/17 05:59 05:59 05:59 Intake Total 1915 1370 Balance 1915 1370 PT 23.2 SEC (12.0-15.0) H 12/09/17 06:20 INR 2.05 (0.83-1.16) H 12/09/17 06:20 Physical Exam - Physical Exam General Appearance: WD/WN, alert, no apparent distress Respiratory: lungs clear, normal breath sounds, No respiratory distress, No accessory muscle use, No rales, No rhonchi, No wheezing Cardiac/Chest: normal peripheral pulses, regular rate, rhythm, No edema, No gallop Skin: normal color, warm/dry, No cyanosis, No diaphoresis Extremities: non-tender, No pedal edema, No swelling Neuro/Psych: alert, normal mood/affect, other (Right-sided motor weakness) ICD10 Worksheet Patient Problems: Problems Problem Status Onset CVA (cerebral vascular accident) Acute
[2017-12-09] MEDS: AQUAPHOR OINTMENT 3.5 OZ JAR TP SCH ×2 (15:38→19:49)
[2017-12-09] MEDS ORDERED: WARFARIN SODIUM 5 MG TAB PO ONE (16:00)
[2017-12-09] MEDS: traZODone 100 MG TAB PO SCH (19:48)
[2017-12-10 08:05] LABS: INR 1.88 (0.83-1.16); PROTIME(PATIENT) 21.7 SEC (12.0-15.0)
[2017-12-10] MEDS: POLYETHYLENE GLYCOL 3350 17 GM PKT PO SCH (08:43)
[2017-12-10] MEDS: ATORVASTATIN CALCIUM 40 MG TAB PO SCH (08:43)
[2017-12-10] MEDS: ASPIRIN 325 MG TAB PO SCH (08:43)
[2017-12-10] MEDS: PANTOPRAZOLE SODIUM 40 MG TAB PO SCH (08:43)
[2017-12-10] MEDS: SENNOSIDES 1 TAB PO SCH (08:43)
--- NOTE | 2017-12-10 14:01 | SOAPPROG ---
ALISON Progress Note Assessment/Plan: Assessment: 82-year-old male with a acute on chronic stroke in the frontoparietal region on the left side on 11/27/2017 with new expressive aphasia and impairments in mobility and ADLs. Acute on chronic cerebrovascular accident with new expressive aphasia and impaired mobility and ADLs. * Initial functional independence measure is 50 on 12/06/2017. Bed mobility requires contact guard to minimal assist. Transfers require contact guard to minimal assist. He is retro pulse of. He has decreased hip and knee extension. He ambulated 100 ft with a front wheeled walker and contact guard to minimal assist. He is noted to have shuffling steps. Grooming and hygiene are done seated he needs moderate assist for shaving. Upper body dressing requires standby to minimal assist. Lower body dressing requires contact guard assist to hike his pants and moderate assist for socks and shoes. Bath transfer and toilet transfer require contact guard to minimal assist. * Continue PT and OT to optimize mobility and ADLs toward a modified independent level. Speech and Language Pathology assessment regarding communication. Expressive aphasia. Starting to show improvement. 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 Secondary prophylaxis of cerebrovascular accident. Continue atorvastatin and increased dose aspirin. Continue warfarin. Per , warfarin was started after multiple strokes. She reports he has had 4 strokes. Pharmacy will manage his warfarin dosing. 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 Also has increased tone. Continue OT. Nocturia. 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 * Doubt BPH with negligible postvoid residual on bladder scan. * Might benefit from a bladder anticholinergic but would be concerned about constipating effects and cognitive effects. * Advised to limit fluid intake after dinner. History of insomnia. Continue trazodone, 150 mg at bedtime. Irregular heartbeat. EKG shows sinus rhythm, incomplete left bundle branch block.. Constipation. Continue senna. Add polyethylene glycol 17 g p.o. Q.day. Continent of bowel. Aortic stenosis. No signs or symptoms of congestive heart failure. Prophylaxis. Continue warfarin, which will be sufficient for deep venous thrombosis prophylaxis, assuming his INR is therapeutic. Will check INR in the morning. Given that he is on warfarin as well as aspirin, will continue pantoprazole as ordered out of the hospital at 40 mg p.o. daily. He was not taking this prior to his hospitalization, but his aspirin dose has been increased from 81 to 325 mg daily, so it seems prudent to continue the pantoprazole for GI prophylaxis. DISPOSITION: Lives with , 2 steps to enter. 55-year-old daughter lives with them and and daughter are both available to help. Set tentative discharge date for 12/17/2017. FOLLOWUP: He will follow up with his primary care provider, Dr. Arvind Kaur at [facility] in 2-3 weeks, and he will follow up with the [facility] at [place]. He has an appointment set for Wednesday, December 08 at 10:15 a.m. If he is not discharged by this date, appointment will be rescheduled. 12/10/17 13:58 Subjective: Reports that he had nocturia x3 overnight and he with the bed the 3rd time. Nurse reports that he had urgency the 3rd time. Otherwise without complaints. No fevers or chills, no cough or dyspnea. Feels his right arm function is benefitting from working with Occupational therapy. Objective: Vital Signs Temp Pulse Resp BP Pulse Ox 36.6 C 93 16 109/76 91 L 12/10/17 06:28 12/10/17 08:39 12/10/17 06:28 12/10/17 08:42 12/10/17 06:28 Laboratory Results 12/08/17 06:20 12/05/17 05:50 12/09/17 12/10/17 12/11/17 05:59 05:59 05:59 Intake Total 1370 1180 360 Balance 1370 1180 360 PT 21.7 SEC (12.0-15.0) H 12/10/17 06:15 INR 1.88 (0.83-1.16) H 12/10/17 06:15 Physical Exam - Physical Exam General Appearance: WD/WN, alert, no apparent distress Respiratory: normal breath sounds, No crackles, No rhonchi, No wheezing Cardiac/Chest: regular rate, rhythm, No edema, No diastolic murmur, No systolic murmur Skin: normal color, warm/dry Neuro/Psych: alert, normal mood/affect, motor weakness (Right upper extremity ataxia) ICD10 Worksheet Patient Problems: Problems Problem Status Onset CVA (cerebral vascular accident) Acute
[2017-12-10] MEDS ORDERED: WARFARIN SODIUM 5 MG TAB PO ONE (16:00)
[2017-12-10] MEDS: AQUAPHOR OINTMENT 3.5 OZ JAR TP SCH ×2 (17:31→19:52)
[2017-12-10] MEDS: traZODone 100 MG TAB PO SCH (19:51)
[2017-12-11 07:47] LABS: INR 1.89 (0.83-1.16); PROTIME(PATIENT) 21.8 SEC (12.0-15.0)
[2017-12-11] MEDS: SENNOSIDES 1 TAB PO SCH (09:05)
[2017-12-11] MEDS: ASPIRIN 325 MG TAB PO SCH (09:05)
[2017-12-11] MEDS: ATORVASTATIN CALCIUM 40 MG TAB PO SCH (09:05)
[2017-12-11] MEDS: PANTOPRAZOLE SODIUM 40 MG TAB PO SCH (09:05)
[2017-12-11] MEDS: AQUAPHOR OINTMENT 3.5 OZ JAR TP SCH ×2 (09:06→20:00)
[2017-12-11] MEDS: POLYETHYLENE GLYCOL 3350 17 GM PKT PO SCH (09:06)
--- NOTE | 2017-12-11 14:34 | HOSPPROG ---
Hospitalist Progress Note Assessment/Plan: Assessment: 82 yo M p/w acute, recurrent CVA w/ residual aphasia/paresis Plan: # CVA. 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 Counseled patient that we can have scheduled void immediately prior to going to bed, then q4h overnight scheduled by nurse, gauge effect # . No e/o CHF # Suspected atelectasis. Insp basilar crackles on exam, start IS Diet. Regular PPx. High risk, given recent CVA, hold pharm and use SCDs while INR < 2 Code. Full Dispo. Lives with , 2 steps to enter. 55-year-old daughter lives with them and and daughter are both available to help. Set tentative discharge date for 12/17/2017. Subjective: patient reports ongoing nocturnal incontinence Objective: Vital Signs Temp Pulse Resp BP Pulse Ox 36.8 C 70 16 145/85 H 92 12/11/17 05:49 12/11/17 05:49 12/11/17 05:49 12/11/17 05:49 12/11/17 05:49 Laboratory Results 12/08/17 06:20 12/05/17 05:50 12/10/17 12/11/17 12/12/17 05:59 05:59 05:59 Intake Total 1180 1430 600 Balance 1180 1430 600 PT 21.8 SEC (12.0-15.0) H 12/11/17 06:00 INR 1.89 (0.83-1.16) H 12/11/17 06:00 - Physical Exam Constitutional: no apparent distress, not in pain, chronically ill appearing, No uncomfortable Cardiovascular: systolic murmur (II/ at apex and sternum), No irregularly irregular, No tachycardia, No edema Respiratory: inspiratory crackles (bilat bases), No reduced air movement, No expiratory wheeze, No bronchial breath sounds, No respiratory distress Gastrointestinal: normoactive bowel sounds, soft, non-tender abdomen, no palpable masses, No distension Neurologic: weakness (RUE contracture and paresis w/ finger extension, 4/5 shoulder abduction), other (notable expressive aphasia), No AAOx3 (AAOX2 ( person and place)) Psychiatric: interacting appropriately, other (follows commands, attempts to verbally respond to questions) ICD10 Worksheet Patient Problems: Problems Problem Status Onset CVA (cerebral vascular accident) Acute
[2017-12-11] MEDS ORDERED: WARFARIN SODIUM 5 MG TAB PO ONE ×2 (16:00)
[2017-12-11] MEDS ORDERED: WARFARIN SODIUM 7.5 MG TAB PO ONE (16:00)
[2017-12-11] MEDS: traZODone 100 MG TAB PO SCH (19:59)
[2017-12-12 07:59] LABS: INR 2.18 (0.83-1.16); PROTIME(PATIENT) 24.3 SEC (12.0-15.0)
[2017-12-12] MEDS: ATORVASTATIN CALCIUM 40 MG TAB PO SCH (08:16)
[2017-12-12] MEDS: ASPIRIN 325 MG TAB PO SCH (08:16)
[2017-12-12] MEDS: PANTOPRAZOLE SODIUM 40 MG TAB PO SCH (08:16)
[2017-12-12] MEDS: POLYETHYLENE GLYCOL 3350 17 GM PKT PO SCH (08:17)
[2017-12-12] MEDS: AQUAPHOR OINTMENT 3.5 OZ JAR TP SCH ×2 (08:17→19:58)
[2017-12-12] MEDS: SENNOSIDES 1 TAB PO SCH (08:17)
--- NOTE | 2017-12-12 12:47 | HOSPPROG ---
Hospitalist Progress Note Assessment/Plan: Assessment: 82 yo M p/w acute, recurrent CVA w/ residual aphasia/paresis Plan: # CVA. 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 Cont scheduled void immediately prior to going to bed, then q4h overnight scheduled by nurse, gauge effect # . No e/o CHF # Suspected atelectasis. Insp basilar crackles on exam, started IS Diet. Regular PPx. High risk, INR > 2 Code. Full Dispo. Lives with , 2 steps to enter. 55-year-old daughter lives with them and and daughter are both available to help. Set tentative discharge date for 12/17/2017. Subjective: had BM yesterday, daughter feels that he is improving Objective: Vital Signs Temp Pulse Resp BP Pulse Ox 36.6 C 74 17 146/90 H 92 12/12/17 05:54 12/12/17 05:54 12/12/17 05:54 12/12/17 08:16 12/12/17 05:54 Laboratory Results 12/08/17 06:20 12/05/17 05:50 12/11/17 12/12/17 12/13/17 05:59 05:59 05:59 Intake Total 1430 940 240 Balance 1430 940 240 PT 24.3 SEC (12.0-15.0) H 12/12/17 06:00 INR 2.18 (0.83-1.16) H 12/12/17 06:00 - Physical Exam Constitutional: no apparent distress, not in pain, chronically ill appearing, No uncomfortable Cardiovascular: systolic murmur (II/ at sternum), No irregularly irregular, No tachycardia, No edema Respiratory: inspiratory crackles (bilat bases), No reduced air movement, No expiratory wheeze, No bronchial breath sounds, No respiratory distress Gastrointestinal: normoactive bowel sounds, soft, non-tender abdomen, No guarding, No distension Neurologic: AAOx3, weakness (RUE inability to extend fingers, 3/5 motor proximally; 5/5 motor prox LUE w/ mild impairment in extending fingers), No sensation intact bilaterally (RUE paresthesia) Psychiatric: not anxious, flat affect, other (naming 2/3; concentration 0/7), No agitated ICD10 Worksheet Patient Problems: Problems Problem Status Onset CVA (cerebral vascular accident) Acute
[2017-12-12] MEDS ORDERED: WARFARIN SODIUM 5 MG TAB PO ONE (16:00)
[2017-12-12] MEDS: traZODone 100 MG TAB PO SCH (19:55)
[2017-12-13] MEDS: PANTOPRAZOLE SODIUM 40 MG TAB PO SCH (08:35)
[2017-12-13] MEDS: SENNOSIDES 1 TAB PO SCH ×2 (08:35→15:50)
[2017-12-13] MEDS: ATORVASTATIN CALCIUM 40 MG TAB PO SCH (08:35)
[2017-12-13] MEDS: ASPIRIN 325 MG TAB PO SCH (08:35)
[2017-12-13] MEDS: POLYETHYLENE GLYCOL 3350 17 GM PKT PO SCH ×2 (08:36→15:50)
[2017-12-13] MEDS: AQUAPHOR OINTMENT 3.5 OZ JAR TP SCH (08:37)
[2017-12-13 09:20] LABS: INR 2.25 (0.83-1.16); PROTIME(PATIENT) 24.9 SEC (12.0-15.0)
--- NOTE | 2017-12-13 11:58 | SOAPPROG ---
SOAP Progress Note Assessment/Plan: Assessment: 82-year-old male with a acute on chronic stroke in the frontoparietal region on the left side on 11/27/2017 with new expressive aphasia and impairments in mobility and ADLs. Acute on chronic cerebrovascular accident with new expressive aphasia and impaired mobility and ADLs. * Initial functional independence measure is 50 on 12/06/2017, improved to 78 as of 12/13/2017. Transfers sit to stand standby assist with a front wheeled walker. Ambulated 150 ft limited by fatigue standby assist with front wheeled walker. Climbs steps and descends stairs with minimal to moderate assist, front wheeled walker, curb steps. He is retro pulse of and disorganized creating fall risk. Bath transfer requires moderate assistance and bathing is done with minimal assistance. Toileting is done with minimal assistance. Upper body and lower body dressing required minimal assistance. * Continue PT and OT to optimize mobility and ADLs toward a modified independent level. Speech and Language Pathology assessment regarding communication. Expressive and receptive aphasia, severe. Also with decreased memory and executive function.. Continue CREDIT ADVISOR. Secondary prophylaxis of cerebrovascular accident. Continue atorvastatin and increased dose aspirin. Continue warfarin. Per , warfarin was started after multiple strokes. She reports he has had 4 strokes. Pharmacy managing his warfarin dosing. 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 Also has increased tone. Continue OT. Nocturia. Noted to be incontinent of urine in the molder offbearer hours. * Doubt BPH with negligible postvoid residual on bladder scan. * Might benefit from a bladder anticholinergic but would be concerned about constipating effects and cognitive effects. * Advised to limit fluid intake after dinner. History of insomnia. Continue trazodone, 150 mg at bedtime. Irregular heartbeat. EKG shows sinus rhythm, incomplete left bundle branch block.. Constipation. Continue senna. Add polyethylene glycol 17 g p.o. Q.day. Continent of bowel. Aortic stenosis. No signs or symptoms of congestive heart failure. Prophylaxis. Continue warfarin, which will be sufficient for deep venous thrombosis prophylaxis. Given that he is on warfarin as well as aspirin, will continue pantoprazole as ordered out of the hospital at 40 mg p.o. daily. He was not taking this prior to his hospitalization, but his aspirin dose has been increased from 81 to 325 mg daily, so it seems prudent to continue the pantoprazole for GI prophylaxis. DISPOSITION: Attended staffing, 15 min. Discussed with case management, dietitian, nursing, PT, OT, CREDIT ADVISOR. Lives with , 2 steps to enter. 55-year- old daughter lives with them and and daughter are both available to help. May need a higher level of care than they can provide, as he currently is at skilled nursing level of function. Set tentative discharge date for 12/17/2017. FOLLOWUP: He will follow up with his primary care provider, Dr. Arvind Kaur at [facility] in 2-3 weeks, and he will follow up with the [facility] at [place]. He has an appointment set for December 08 at 10:15 a.m. If he is not discharged by this date, appointment will be rescheduled. 12/13/17 11:32 Subjective: No complaints. Sleeping well. Denies pain. No fevers or chills, no cough or dyspnea. Objective: Vital Signs Temp Pulse Resp BP Pulse Ox 36.6 C 60 16 130/64 H 92 12/13/17 06:25 12/13/17 06:25 12/13/17 06:25 12/13/17 08:37 12/13/17 06:25 Laboratory Results 12/08/17 06:20 12/05/17 05:50 12/12/17 12/13/17 12/14/17 05:59 05:59 05:59 Intake Total 940 1000 Balance 940 1000 PT 24.9 SEC (12.0-15.0) H 12/13/17 06:00 INR 2.25 (0.83-1.16) H 12/13/17 06:00 - Time Spent With Patient Time Spent With Patient: Greater than 35 min floor time today, including more than 50% of time in coordination of care during staffing meeting, and counseling patient. Physical Exam - Physical Exam General Appearance: WD/WN, alert, no apparent distress Respiratory: normal breath sounds, No crackles, No rhonchi, No wheezing Cardiac/Chest: regular rate, rhythm, No edema Skin: normal color, warm/dry Neuro/Psych: alert, normal mood/affect, aphasia (Expressive and receptive), motor weakness (0 right upper extremity ataxia) ICD10 Worksheet Patient Problems: Problems Problem Status Onset CVA (cerebral vascular accident) Acute
[2017-12-13] MEDS ORDERED: WARFARIN SODIUM 5 MG TAB PO ONE (16:00)
[2017-12-13] MEDS: traZODone 100 MG TAB PO SCH (20:02)
[2017-12-14] MEDS: PANTOPRAZOLE SODIUM 40 MG TAB PO SCH (08:20)
[2017-12-14] MEDS: ASPIRIN 325 MG TAB PO SCH (08:20)
[2017-12-14] MEDS: ATORVASTATIN CALCIUM 40 MG TAB PO SCH (08:20)
[2017-12-14] MEDS: SENNOSIDES 1 TAB PO SCH (08:22)
[2017-12-14] MEDS: POLYETHYLENE GLYCOL 3350 17 GM PKT PO SCH (08:22)
[2017-12-14] MEDS ORDERED: POLYETHYLENE GLYCOL 3350 17 GM PKT PO PRN (08:42)
[2017-12-14] MEDS ORDERED: SENNOSIDES 1 TAB PO PRN (08:42)
[2017-12-14 09:17] LABS: INR 2.32 (0.83-1.16); PROTIME(PATIENT) 25.5 SEC (12.0-15.0)
--- NOTE | 2017-12-14 10:48 | SOAPPROG ---
ALISON Progress Note Assessment/Plan: 82-year-old male with a acute on chronic stroke in the frontoparietal region on the left side on 11/27/2017 with new expressive aphasia and impairments in mobility and ADLs. Today's update: Therapy is going well, discharge may be to an alternative location because of caregiver assistance. Patient endorsed some blood in his stool on yes no questioning, but given his aphasia this is questionably accurate. Reports from staff indicate that it was from urine. Checking both urine and stool for blood, does not have significant drop in hematocrit recently but checking CBC again. He reports a small amount of blood, no lightheadedness, no history of this as well. Still continues to be somewhat hypertensive, increasing amlodipine to 5 mg daily from present dose of 2.5. Continue rehabilitation plan. Continues to have impairments in mobility, self- care, cognition, and aphasia. A total of 25 min was spent on the floor in the care of the patient, the majority of which was spent counseling coordination of care regarding treatment options for hypertension and diagnostic options and plan for the blood he noticed in his stool. Additional issues reviewed without change today include nocturia, insomnia, irritability, irregular heartbeat, constipation, aortic stenosis. 12/07/17 10:05 12/09/17 09:48 12/14/17 10:44 Subjective: Chief complaint: Hypertension and reportedly blood in stool No acute events overnight. Patient denies any new shortness of breath or chest pain, no new numbness, tingling, or weakness. He endorses some blood in his stool on questioning, he states he has not had a before, it was a small amount of blood in the stool, no associated melena, no lightheadedness, no history of bleeding, no rectal pain. He noticed it yesterday and has not noticed today as he has not had a bowel movement. He has been refusing bowel medications these have been changed to p.r.n.. Also he was hypertensive, denies any new headache , vision changes, also no orthostasis. Report from nursing indicates that blood was noticed in his urine not his stool. Objective: Vital Signs Temp Pulse Resp BP Pulse Ox 36.5 C 58 L 14 136/86 H 90 L 12/14/17 08:00 12/14/17 08:00 12/14/17 08:00 12/14/17 08:19 12/14/17 08:00 Laboratory Results 12/08/17 06:20 12/05/17 05:50 12/13/17 12/14/17 12/15/17 05:59 05:59 05:59 Intake Total 1000 700 360 Balance 1000 700 360 PT 25.5 SEC (12.0-15.0) H 12/14/17 06:30 INR 2.32 (0.83-1.16) H 12/14/17 06:30 Physical Exam - Physical Exam General Appearance: WD/WN, alert, no apparent distress EENT: No scleral icterus (R), No scleral icterus (L) Respiratory: chest non-tender, No respiratory distress, No accessory muscle use Cardiac/Chest: normal peripheral pulses, regular rate, rhythm, No edema Abdomen: non-tender, soft Skin: normal color, warm/dry, No cyanosis, No diaphoresis Extremities: No pedal edema, No calf tenderness, No swelling Neuro/Psych: alert, normal mood/affect, aphasia, motor weakness (Right-sided hemiparesis, improving, could shake my hand), speech abnormalities (Aphasia) ICD10 Worksheet Patient Problems: Problems Problem Status Onset CVA (cerebral vascular accident) Acute
[2017-12-14] MEDS ORDERED: WARFARIN SODIUM 5 MG TAB PO ONE (16:00)
[2017-12-14] MEDS: traZODone 100 MG TAB PO SCH (20:19)
[2017-12-15 08:05] LABS: PLATELET COUNT 188 10^3/uL (150-400)
[2017-12-15] MEDS: ASPIRIN 325 MG TAB PO SCH (08:43)
[2017-12-15] MEDS: ATORVASTATIN CALCIUM 40 MG TAB PO SCH (08:44)
[2017-12-15] MEDS: PANTOPRAZOLE SODIUM 40 MG TAB PO SCH (08:44)
[2017-12-15] MEDS: amLODIPine BESYLATE 5 MG TAB PO SCH (08:44)
--- NOTE | 2017-12-15 09:48 | SOAPPROG ---
GUEVARAAP Progress Note Assessment/Plan: Assessment: 82-year-old male with a acute on chronic stroke in the frontoparietal region on the left side on 11/27/2017 with new expressive aphasia and impairments in mobility and ADLs. Acute on chronic cerebrovascular accident with new expressive aphasia and impaired mobility and ADLs. * Initial functional independence measure is 50 on 12/06/2017, improved to 78 as of 12/13/2017. Transfers sit to stand standby assist with a front wheeled walker. Ambulated 150 ft limited by fatigue standby assist with front wheeled walker. Climbs steps and descends stairs with minimal to moderate assist, front wheeled walker, curb steps. He is retropulsive and disorganized creating fall risk. Bath transfer requires moderate assistance and bathing is done with minimal assistance. Toileting is done with minimal assistance. Upper body and lower body dressing required minimal assistance. * Continue PT and OT to optimize mobility and ADLs toward a modified independent level. Speech and Language Pathology assessment regarding communication. Expressive and receptive aphasia, severe. Also with decreased memory and executive function.. Continue COORDINATOR VOLUNTEER SERVICES. Secondary prophylaxis of cerebrovascular accident. Continue atorvastatin and increased dose aspirin. Continue warfarin. Per , warfarin was started after multiple strokes. She reports he has had 4 strokes. Pharmacy managing his warfarin dosing. 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 Also has increased tone. Continue OT. Hematochezia by report. Blood counts are stable on labs today, 12/15/2017. No hematuria. Awaiting results of Hemoccult. Continue pantoprazole. Nocturia. 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 * Doubt BPH with negligible postvoid residual on bladder scan. * Might benefit from a bladder anticholinergic but would be concerned about constipating effects and cognitive effects. * Advised to limit fluid intake after dinner. History of insomnia. Continue trazodone, 150 mg at bedtime. Irregular heartbeat. EKG shows sinus rhythm, incomplete left bundle branch block.. Constipation. Continue senna. Add polyethylene glycol 17 g p.o. Q.day. Continent of bowel. Aortic stenosis. No signs or symptoms of congestive heart failure. Prophylaxis. Continue warfarin, which will be sufficient for deep venous thrombosis prophylaxis. Given that he is on warfarin as well as aspirin, will continue pantoprazole as ordered out of the hospital at 40 mg p.o. daily. He was not taking this prior to his hospitalization, but his aspirin dose has been increased from 81 to 325 mg daily, so it seems prudent to continue the pantoprazole for GI prophylaxis. DISPOSITION: Lives with , 2 steps to enter. 55-year-old daughter lives with them and and daughter are both available to help. May need a higher level of care than they can provide, as he currently is at fdc level of function. Set tentative discharge date for 12/17/2017. FOLLOWUP: He will follow up with his primary care provider, Dr. Arvind Kaur at [facility] in 2-3 weeks, and he will follow up with the [facility] at [place]. He has an appointment set for December 08 at 10:15 a.m. If he is not discharged by this date, appointment will be rescheduled. 12/15/17 09:45 Subjective: No complaints. Sleeping well. No fevers or chills, no cough or dyspnea. Objective: Vital Signs Temp Pulse Resp BP Pulse Ox 36.5 C 60 14 107/63 94 12/14/17 18:11 12/14/17 18:11 12/14/17 18:11 12/15/17 08:44 12/14/17 18:11 Laboratory Results 12/15/17 06:00 12/05/17 05:50 12/14/17 12/15/17 12/16/17 05:59 05:59 05:59 Intake Total 700 940 Balance 700 940 PT 25.5 SEC (12.0-15.0) H 12/14/17 06:30 INR 2.32 (0.83-1.16) H 12/14/17 06:30 Physical Exam - Physical Exam General Appearance: WD/WN, alert, no apparent distress Respiratory: No respiratory distress, No accessory muscle use Skin: normal color, warm/dry Neuro/Psych: alert, normal mood/affect, aphasia, motor weakness (Right upper extremity ataxia) ICD10 Worksheet Patient Problems: Problems Problem Status Onset CVA (cerebral vascular accident) Acute
[2017-12-15] MEDS ORDERED: WARFARIN SODIUM 5 MG TAB PO ONE (16:00)
[2017-12-15] MEDS: traZODone 100 MG TAB PO SCH (19:58)
[2017-12-16 08:30] LABS: INR 2.22 (0.83-1.16); PROTIME(PATIENT) 24.6 SEC (12.0-15.0)
[2017-12-16] MEDS: amLODIPine BESYLATE 5 MG TAB PO SCH (08:49)
[2017-12-16] MEDS: PANTOPRAZOLE SODIUM 40 MG TAB PO SCH (08:49)
[2017-12-16] MEDS: ASPIRIN 325 MG TAB PO SCH (08:49)
[2017-12-16] MEDS: ATORVASTATIN CALCIUM 40 MG TAB PO SCH (08:49)
--- NOTE | 2017-12-16 11:47 | SOAPPROG ---
SOAP Progress Note Assessment/Plan: Assessment: 82-year-old male with a acute on chronic stroke in the frontoparietal region on the left side on 11/27/2017 with new expressive aphasia and impairments in mobility and ADLs. Acute on chronic cerebrovascular accident with new expressive aphasia and impaired mobility and ADLs. * Initial functional independence measure is 50 on 12/06/2017, improved to 78 as of 12/13/2017. Transfers sit to stand standby assist with a front wheeled walker. Ambulated 150 ft limited by fatigue standby assist with front wheeled walker. Climbs steps and descends stairs with minimal to moderate assist, front wheeled walker, curb steps. He is retropulsive and disorganized creating fall risk. Bath transfer requires moderate assistance and bathing is done with minimal assistance. Toileting is done with minimal assistance. Upper body and lower body dressing required minimal assistance. * Continue PT and OT to optimize mobility and ADLs toward a modified independent level. Speech and Language Pathology assessment regarding communication. Expressive and receptive aphasia, severe. Also with decreased memory and executive function.. Continue NICKEL PLANT OPERATOR. Secondary prophylaxis of cerebrovascular accident. Continue atorvastatin and increased dose aspirin. Continue warfarin. Per , warfarin was started after multiple strokes. She reports he has had 4 strokes. Pharmacy managing his warfarin dosing. 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 Also has increased tone. Continue OT. Hematochezia by report. Blood counts are stable on labs today, 12/15/2017. No hematuria. Awaiting results of Hemoccult. Continue pantoprazole. Nocturia. Noted to be incontinent of urine in the laundry sorter hours. * Doubt BPH with negligible postvoid residual on bladder scan. * Might benefit from a bladder anticholinergic but would be concerned about constipating effects and cognitive effects. * Improved with scheduled toileting overnight. History of insomnia. Continue trazodone, 150 mg at bedtime. Irregular heartbeat. EKG shows sinus rhythm, incomplete left bundle branch block.. Constipation. Continue senna. Add polyethylene glycol 17 g p.o. Q.day. Continent of bowel. Aortic stenosis. No signs or symptoms of congestive heart failure. Prophylaxis. Continue warfarin, which will be sufficient for deep venous thrombosis prophylaxis. Given that he is on warfarin as well as aspirin, will continue pantoprazole as ordered out of the hospital at 40 mg p.o. daily. He was not taking this prior to his hospitalization, but his aspirin dose has been increased from 81 to 325 mg daily, so it seems prudent to continue the pantoprazole for GI prophylaxis. DISPOSITION: Lives with , 2 steps to enter. 55-year-old daughter lives with them and and daughter are both available to help. May need a higher level of care than they can provide, as he currently is at detention level of function. Set tentative discharge date for 12/17/2017. FOLLOWUP: He will follow up with his primary care provider, Dr. Arvind Kaur at [facility] in 2-3 weeks, and he will follow up with the [facility] at [place]. He has an appointment set for December 08 at 10:15 a.m. If he is not discharged by this date, appointment will be rescheduled. 12/16/17 11:43 Subjective: No complaints. Not in pain. No cough or dyspnea. No fevers or chills. Bowels moving. Sleeping well. Objective: Vital Signs Temp Pulse Resp BP Pulse Ox 36.3 C 88 17 126/73 H 93 12/16/17 08:00 12/16/17 08:00 12/16/17 08:00 12/16/17 08:00 12/16/17 08:00 Laboratory Results 12/15/17 06:00 12/05/17 05:50 12/15/17 12/16/17 12/17/17 05:59 05:59 05:59 Intake Total 940 1210 460 Balance 940 1210 460 PT 24.6 SEC (12.0-15.0) H 12/16/17 06:00 INR 2.22 (0.83-1.16) H 12/16/17 06:00 Physical Exam - Physical Exam General Appearance: WD/WN, alert, no apparent distress Respiratory: normal breath sounds, crackles (Few, expiratory, right lower lobe.) , No rhonchi, No wheezing Cardiac/Chest: regular rate, rhythm, systolic murmur, No edema, No JVD Skin: normal color, warm/dry Neuro/Psych: alert, normal mood/affect, aphasia, motor weakness (Right upper extremity ataxia) ICD10 Worksheet Patient Problems: Problems Problem Status Onset CVA (cerebral vascular accident) Acute
--- NOTE | 2017-12-16 13:57 | PDOREHIP ---
Admission [facility] - Admission - 3 Day Assessment Period Admission Date/Day 1: 12/01/17 Day 2: 12/02/17 Day 3: 12/03/17 Discharge [facility] - Discharge - 3 Day Assessment Period 2 Days Prior to Anticipated Discharge Date: 12/15/17 1 Day Prior to Anticipated Discharge Date: 12/16/17 Anticipated Discharge Date: 12/17/17 - Discharge Skin Conditions Unhealed Pressure Ulcer (1 or more/Stage 1 or >)-Discharge: 0. No
[2017-12-16] MEDS ORDERED: WARFARIN SODIUM 5 MG TAB PO ONE (16:00)
[2017-12-16] MEDS: traZODone 100 MG TAB PO SCH (19:54)
[2017-12-17 05:31] VITALS: BP 135/75
[2017-12-17] MEDS: ASPIRIN 325 MG TAB PO SCH (08:46)
[2017-12-17] MEDS: ATORVASTATIN CALCIUM 40 MG TAB PO SCH (08:46)
[2017-12-17] MEDS: amLODIPine BESYLATE 5 MG TAB PO SCH (08:46)
[2017-12-17] MEDS: PANTOPRAZOLE SODIUM 40 MG TAB PO SCH (08:46)
[2017-12-17 08:54] LABS: INR 2.26 (0.83-1.16)
--- NOTE | 2017-12-17 14:59 | GDS ---
DISCHARGE DIAGNOSIS: Cerebrovascular accident. DISCHARGE DIAGNOSIS: Cerebrovascular accident. OTHER DISCHARGE DIAGNOSES: 1. Right upper extremity ataxia and contracture. 2. Hematochezia. 3. Nocturia. COMPLICATIONS: None. PROCEDURES: None. CONSULTATIONS: None. HISTORY/HOSPITAL COURSE: This patient was admitted from [facility]. He had presented there after being found down at home with expressive aphasia. MRI of the brain showed acute on chronic is chemic changes in the frontoparietal region on the left. Echocardiogram showed no intracardiac shunt , but showed mild tricuspid regurgitation, mild valvular aortic stenosis, mild concentric LVH, a norm al ejection fraction, grade 2 diastolic dysfunction of the left ventricle and normal right ventricula r function and normal atria. He had a subtherapeutic INR. He had already been on warfarin, and low- dose aspirin. Aspirin was increased from 81 to 325 mg daily and he was started on atorvastatin. He was medically stable and appropriate for inpatient rehabilitation. 1. He had considerable progress in rehabilitation though he remained in need of considerable assista nce and supervision. His initial functional independence measure was 50 on 12/06/2017, which is cons istent with [facility] level of care needing assistance in almost all aspects of mobility and activ ities of daily living. He improved to 78 as of 12/13/2017. This is still consistent with [facility] level of care, but it is close to the assisted living level. He required standby assist for trans fers. He ambulated 150 feet with a front-wheeled walker and standby assist. He was able to climb an d descend stairs with minimal to moderate assist using a front-wheeled walker. On curb steps, he was noted to be retropulsive and disorganized, which created a fall risk. For bath transfer he required moderate assistance and bathing was done with minimal assistance. Toileting was done with minimal a ssistance. Upper and lower body dressing required minimal assistance. He had improvement in his rig ht upper extremity ataxia which had predated his most recent stroke and was beginning to incorporate it functionally in activities of daily living. 2. He had expressive and receptive aphasia, which was severe. There was limited improvement. He al so was noted to have decreased memory and executive function. It was recommended that he have 24 ciara r supervision for safety. 3. There was a report of hematochezia. He had stable blood counts. There was no hematuria noted. Hemoccult of stool was obtained once and was negative. 4. He had nocturia and incontinence of urine in the adult ministries director hours. He had a negligible postvo id residual on bladder scan, so BPH seemed unlikely to be the etiology. This improved with schedulin g his toileting overnight. 5. Regarding aortic stenosis and diastolic dysfunction, he had no signs or symptoms of congestive he art failure. DISCHARGE PLAN: Condition upon discharge is good. DIET: Regular. ACTIVITY: He requires supervision for all activities of daily living and assistance for mobility rel ated activities of daily living as well as bathing and toileting. MEDICATIONS ON DISCHARGE: 1. Acetaminophen 650 mg p.o. q.6 hours p.r.n. 2. Amlodipine 5 mg p.o. daily. 3. Aspirin 325 mg p.o. daily. 4. Atorvastatin 40 mg p.o. daily. 5. Pantoprazole 40 mg p.o. daily. 6. Polyethylene glycol 17 g p.o. daily p.r.n. 7. Senna 2 tablets p.o. daily. 8. Trazodone 150 mg p.o. at bedtime. 9. Warfarin 5 mg 6 days a week and 7.5 mg each Wednesday. ISSUES TO BE ADDRESSED AT FOLLOWUP: 1. Functional status and cognition/communication. He will continue PT, OT, and [employer] at home. 2. Recurrent CVAs. He should maintain his INR in the therapeutic range and he should continue aspir in 325 mg daily as well as atorvastatin. 3. Insomnia was controlled well on his home dose of trazodone. 4. Congestive heart failure with aortic stenosis and diastolic dysfunction was asymptomatic. He can follow up with primary care. 5. Report of hematochezia was not documented with Hemoccult which was only done once. Consider cont inued Hemoccult testing. However, he did not have anemia, so unclear if this is necessary. FOLLOWUP: He will see his primary care provider, Dr. Ronal Kaur in 2-3 weeks and he will follow up w ith the [facility] in [place]. Greater than 30 minutes was spent on this discharge including medication reconciliation, coordination of care, and counseling patient and his . /[id number]/MODL
[2017-12-17] MEDS ORDERED: LUBIPROSTONE 8 MCG CAP PO SCH (21:00)
== END 2017-12-17 13:50 | disposition home health service (06) | DRG 57 ==
LOC: BREH 15:54
PROVIDERS: ADMIT Internal Medicine; ATTEND Internal Medicine
DX: I69.820 Aphasia following other cerebrovascular disease (principal); I69.893 Ataxia following other cerebrovascular disease; I69.898 Other sequelae of other cerebrovascular disease; I08.2 Rheumatic disorders of both aortic and tricuspid valves; Z79.01 Long term (current) use of anticoagulants; Z79.82 Long term (current) use of aspirin; Z91.81 History of falling; Z96.653 Presence of artificial knee joint, bilateral; Z87.891 Personal history of nicotine dependence; G47.00 Insomnia, unspecified; I50.9 Heart failure, unspecified
CPT/HCPCS: 92507-GN; 92508-GN; 92523-GN; 92526-GN; 97110-GO; 97110-GP; 97112-GO; 97112-GP; 97116-GP; 97162-GP; 97166-GO; 97530-GO; 97530-GP; 97535-GO; 97542-GP; 99366-GN; 99366-GO; G0009; G0515-GO; J1650